=== PATIENT | male | born 1930 | race Caucasian/White ===

== ENCOUNTER 2016-08-08 09:54 | Day surgery (SDC) | payer OTHER ==
[2016-08-08] MEDS ORDERED: ceFAZolin 2 GM/DEXTROSE 100 ML IV ONE (10:09)
[2016-08-08] MEDS ORDERED: NS 1,000 ML IV ONE (10:09)
[2016-08-08] MEDS ORDERED: DIAZEPAM 5 MG TAB PO ONE (10:09)
[2016-08-08] MEDS ORDERED: BACITRACIN IRRIGATION/NS 50,000 UNITS/1,000 ML BTL IRR ONE (10:09)
[2016-08-08] MEDS ORDERED: diphenhydrAMINE 25 MG CAP PO ONE (10:09)
--- NOTE | 2016-08-08 10:25 | CPEKG ---
Heart Rate: 65 RR Interval: 923 P-R Interval: 214 QRSD Interval: 160 QT Interval: 504 QTC Interval: 525 P Fairchild: 0 QRS Fairchild: -81 T Wave Fairchild: 82 EKG Severity - ABNORMAL ECG - EKG Impression: VENTRICULAR-PACED RHYTHM Electronically Signed By: Thomas Ford 08-Aug-2016 18:40:44
[2016-08-08] MEDS ORDERED: LIDOCAINE 1% 30 ML SDV ONE (10:53)
[2016-08-08] MEDS ORDERED: MIDAZOLAM 2 MG/2 ML VIAL ONE (10:54)
[2016-08-08] MEDS ORDERED: BUPIVACAINE 0.5% 30 ML SDV ONE (10:54)
[2016-08-08] MEDS ORDERED: fentaNYL 100 MCG/2 ML INJ ONE (10:54)
[2016-08-08] MEDS ORDERED: LIDO/EPI 1% **for epidural** 30 ML SDV ONE (10:54)
[2016-08-08 10:57] LABS: % IMMATURE GRANULYOCYTES 0.3 % (0.0-1.1); ABSOLUTE IMMATURE GRANULOCYTES 0.03 10^3/uL (0.00-0.10); ADD DIFF? NO; ADD MORPH? NO; ADD SCAN? NO; ATYPICAL LYMPHOCYTE FLAG 0 (0-99); FRAGMENT RBC FLAG 0 (0-99); HEMATOCRIT 45.3 % (40.0-51.0); HEMOGLOBIN 14.8 g/dL (13.7-17.5); LEFT SHIFT FLG 0 (0-99); LIPEMIA HEMOLYSIS FLAG 80 (0-99); MEAN CELL HEMOGLOBIN 30.7 pg (27.9-34.1); MEAN CELL HEMOGLOBIN CONCENTR. 32.7 g/dL (32.4-36.7); MEAN PLATELET VOLUME 10.9 fL (8.7-11.7); PLATELET CLUMPS FLAG 0 (0-99); PLATELET COUNT 243 10^3/uL (150-400); RED BLOOD CELL COUNT 4.82 10^6/uL (4.40-6.38); RED CELL DISTRIBUTION WIDTH 13.8 % (11.5-15.2)
[2016-08-08 11:09] LABS: INR 2.52 (0.83-1.16); PROTIME(PATIENT) 27.4 SEC (12.0-15.0)
[2016-08-08 11:46] LABS: CALCIUM 9.5 mg/dL (8.5-10.4); CARBON DIOXIDE 20 mEq/l (22-31); CHLORIDE 108 mEq/L (97-110); CREATININE 1.4 mg/dL (0.7-1.3); GLOMERULAR FILTRATION RATE 48; GLUCOSE 101 mg/dL (70-100); SODIUM 139 mEq/L (134-144)
[2016-08-08 11:52] LABS: ANION GAP 11 mEq/L (8-16); POTASSIUM 4.6 mEq/L (3.5-5.2)
--- NOTE | 2016-08-08 14:23 | EPPROC ---
Electrophysiology Procedure Note: PROCEDURE PERFORMED: * AV Pacemaker generator change INDICATION: Pacemaker generator at GLENN Bradycardia PROCEDURE NOTE: Patient presented to the cardiac catheterization laboratory in a fasting, postabsorptive state. Moderate sedation administered. The left infraclavicular area was prepped and draped in the usual sterile fashion. Lidocaine plus bupivacaine was used for local anesthesia. Using a combination of blunt and sharp dissection and electrocautery, the dissection was carried down to the prepectoral fascia and the existing pacemaker pocket was opened. The pacemaker generator was disconnected from the leads and the lead thresholds and impedance were checked. The pacemaker pocket was copiously irrigated with antibiotic solution. The pocket was again inspected for any bleeding. The leads were attached to the pacemaker securely. The pacemaker was inserted into the pocket and secured in place with a nonabsorbable suture. The pacemaker pocket was closed in 3 layers with absorbable monocryl sutures. Appropriate dressing was applied. The patient left the cardiac catheterization laboratory in stable condition. Serial Numbers: * Device Medtronic Advisa MRI DR MISTRY [id number] * Atrial Lead Medtronic 4076 [id number] * Ventricular Lead Medtronic 4074 [id number] Stimulation Thresholds & Impedance Measurements: * Atrial Lead 3.9mV, 0.5@0.4ms, 456Ohms * Ventricular Lead 4.3mV, 0.75@0.4ms, 817Ohms Catarino Pacing Parameters * Pacing mode DDDR * Lower rate 60 * Upper tracking rate 130 * Upper sensor rate 130 Patient Problems: Problems Problem Status Onset Afib Acute
== END 2016-08-08 15:36 | disposition home or self-care (01) ==
LOC: FCATH 09:54
PROVIDERS: ATTEND Internal Medicine Cardiovascular Disease
DX: Z45.010 Encounter for checking and testing of cardiac pacemaker pulse generator [battery] (principal); I49.5 Sick sinus syndrome; Z79.01 Long term (current) use of anticoagulants; Z86.718 Personal history of other venous thrombosis and embolism
CPT/HCPCS: C1785; J0690; J2250; J3010

== ENCOUNTER → 2018-10-19 | Outpatient (CLI) | payer OTHER | LOC: BHLMT 10:45 ==